=== PATIENT | male | born 1975 | race Hispanic/Latino ===

== ENCOUNTER 2016-12-03 11:06 | Emergency (ER) | payer OTHER ==
[2016-12-03] MEDS ORDERED: Lidocaine 1% 20 ML MDV ONE (11:22)
[2016-12-03] MEDS ORDERED: Bacitracin Zinc 1 Packet ONE (12:05)
== END 2016-12-03 12:15 | disposition home or self-care (01) ==
LOC: NAV ERS 11:06
DX: S61.211A Laceration without foreign body of left index finger without damage to nail, initial encounter (principal); I10 Essential (primary) hypertension; Z79.899 Other long term (current) drug therapy; W31.82XA Contact with other commercial machinery, initial encounter; Y92.69 Other specified industrial and construction area as the place of occurrence of the external cause
CPT/HCPCS: 12002; 99001; J2001